=== PATIENT | male | born 1935 | race Caucasian/White ===

== ENCOUNTER 2021-01-30 08:00 | Emergency (ER) | payer OTHER ==
[~2021-01-30 08:00] MED LIST: DEMADEX20 MG PO; ECOTRIN81 MG PO; ELIQUIS2.5 MG PO; ENTRESTO 24 MG1 EACH PO; FLOMAX0.4 MG PO; LEVAQUIN750 MG PO; LOPRESSOR 25 MG25 MG PO; NORVASC10 MG PO; PROSCAR5 MG PO; VENTOLIN HFA 66.7 GM INH; ZESTRIL40 MG PO
[2021-01-30 10:49] LABS: HEMOGLOBIN 14.4 gm/dl (14.0-17.5); RED BLOOD COUNT 4.57 M/UL (4.20-5.50); WHITE BLOOD COUNT 5.3 K/UL (4.5-11.0)
[2021-01-30 11:18] LABS: BUN/CREATININE RATIO 13 (0-10)
== END 2021-01-30 14:50 | disposition home or self-care (01) ==
LOC: ER1 08:00
PROVIDERS: Physician Assistant
DX: J81.1 Chronic pulmonary edema (principal); E87.70 Fluid overload, unspecified; J44.9 Chronic obstructive pulmonary disease, unspecified; I25.10 Atherosclerotic heart disease of native coronary artery without angina pectoris; I11.0 Hypertensive heart disease with heart failure; I50.9 Heart failure, unspecified; E78.5 Hyperlipidemia, unspecified; Z79.1 Long term (current) use of non-steroidal anti-inflammatories (NSAID); Z79.899 Other long term (current) drug therapy; Z20.822 Contact with and (suspected) exposure to COVID-19
CPT/HCPCS: 71046; 80053; 82550; 82553; 83874; 83880; 84484; 85025; 85379; 93005; 94664; 96374; 99285; J1940; Q9965; U0002

== ENCOUNTER → 2021-04-13 | Outpatient (CLI) | payer OTHER | LOC: EXRD 13:08 | DX: I50.22 Chronic systolic (congestive) heart failure (principal); I51.7 Cardiomegaly; R91.8 Other nonspecific abnormal finding of lung field | CPT/HCPCS: 71046 ==

== ENCOUNTER → 2021-04-25 | Outpatient (CLI) | payer OTHER | LOC: HEART 5 10:30 | DX: U09.9 Post COVID-19 condition, unspecified (principal); I50.22 Chronic systolic (congestive) heart failure; R06.02 Shortness of breath | CPT/HCPCS: 93306 ==

== ENCOUNTER → 2021-08-02 | Outpatient (CLI) | payer OTHER | LOC: EXRD 08:35 | DX: I48.0 Paroxysmal atrial fibrillation (principal); R94.30 Abnormal result of cardiovascular function study, unspecified; I71.4 Abdominal aortic aneurysm, without rupture; I08.1 Rheumatic disorders of both mitral and tricuspid valves; I27.20 Pulmonary hypertension, unspecified | CPT/HCPCS: 93306; 93979 ==

== ENCOUNTER → 2021-11-02 | Outpatient (CLI) | payer OTHER | LOC: HEART 5 08:00 | DX: R94.31 Abnormal electrocardiogram [ECG] [EKG] (principal) | CPT/HCPCS: 78452; A9502; J2785 ==

== ENCOUNTER 2021-11-24 07:13 | Outpatient (CLI) | payer OTHER ==
[~2021-11-24] VITALS: Ht 182.9 cm; Wt 100.8 kg
[2021-11-24] MEDS ORDERED: ALFUZOSIN HCL E10 MG PO (07:54)
[2021-11-24] MEDS ORDERED: LIPITOR40 MG PO (07:55)
[2021-11-24] MEDS ORDERED: COREG3.125 MG PO (07:56)
[2021-11-24] MEDS ORDERED: LEVOTHYROXINE50 MC1 PO (07:57)
[2021-11-24] MEDS ORDERED: DITROPAN 5 MG TA5 MG PO (07:58)
[2021-11-24] MEDS ORDERED: DEMADEX 10 MG T10 MG PO (07:58)
[2021-11-24] MEDS ORDERED: VENTOLIN/PROVE0.5 ML INH (07:59)
[2021-11-24] MEDS ORDERED: FLOMAX 0.4 MG0.4 MG PO (08:02)
[2021-11-24] MEDS ORDERED: AMIODARONE HCL200 MG PO ×2 (14:22)
[2021-11-24] MEDS ORDERED: CEPHALEXIN500 M1 PO (14:22)
[2021-11-24] MEDS ORDERED: CLEOCIN HCL300 MG PO (14:22)
[2021-11-24] MEDS ORDERED: HYDROCODON-ACE1 EAC4 PO (14:22)
== END 2021-11-25 10:00 | disposition home or self-care (01) ==
LOC: CATH 07:13 → PROG CARE 12:27 → CATH 11-25 10:00
DX: I42.0 Dilated cardiomyopathy (principal); I50.22 Chronic systolic (congestive) heart failure; I48.0 Paroxysmal atrial fibrillation; I44.7 Left bundle-branch block, unspecified; I25.10 Atherosclerotic heart disease of native coronary artery without angina pectoris; N18.30 Chronic kidney disease, stage 3 unspecified; Z79.01 Long term (current) use of anticoagulants; Z79.899 Other long term (current) drug therapy
CPT/HCPCS: 33225; 33249; 71045; 82550; 82553; 84484; 92960; 93005; 93641; 94664; 94760; 99152; 99153; C1751; C1769; C1777; C1882; C1898; C1900; J0690; J1644; J2250; J3010; J3370; J7040; Q9965